=== PATIENT | male | born 1980 | race American Indian/Alaskan Native ===

== ENCOUNTER 2018-09-27 15:28 | Emergency (ER) | payer MEDICAID ==
--- NOTE | 2018-09-27 16:05 | Event Note ---
ED Screening Note ED Screening Note: Pt presents N/V/D that began a week ago states he has left sided abdominal discomfort +dysuria started acyclovir 9 days ago, began having the sx two days later, for HSV 1 and 2 PMHx HIV, rectal CA-chemo/XRT last tx september 23 night sweats bright red blood in the stool 3 times this week This initial assessment/diagnostic orders/clinical plan/treatment(s) is/are subject to change based on patients health status, clinical progression and re- assessment by fellow clinical providers in the ED. Further treatment and workup at subsequent clinical providers discretion. Patient/guardian urged not to elope from the ED as their condition may be serious if not clinically assessed and managed. Initial orders include: labs, UA
[2018-09-27 16:42] LABS: Hematocrit 45.1 % (35.5-45.6); Hemoglobin 15.6 gm/dl (11.8-15.2); Lymphocytes # (Auto) 1.4 K/mm3 (1.2-5.4); Lymphocytes % (Auto) 31.5 % (13.4-35.0); Mean Corpuscular HGB Conc 35 % (32-34); Mean Corpuscular Volume 97 fl (84-94); Monocytes # (Auto) 0.4 K/mm3 (0.0-0.8); Monocytes % (Auto) 8.5 % (0.0-7.3); Platelet Count 228 K/mm3 (140-440); Red Blood Count 4.67 M/mm3 (3.65-5.03)
[2018-09-27 16:56] LABS: Bacteria,Urine 1+ /HPF (Negative); Bilirubin,Urine NEG (Negative); Blood,Urine NEG (Negative); Color,Urine Yellow (Yellow); Mucus,Urine 3+ /HPF
[2018-09-27 17:04] LABS: Alanine Aminotransferase 30 units/L (7-56); Albumin 4.3 g/dL (3.9-5); BUN/Creatinine Ratio 15; Blood Urea Nitrogen 15 mg/dL (9-20); Calcium 8.9 mg/dL (8.4-10.2); Hemolysis Index 35
[2018-09-27] MEDS ORDERED: DILAUDID IV ONE (20:17)
[2018-09-27] MEDS ORDERED: ZOFRAN IV ONE (20:17)
[2018-09-27] MEDS ORDERED: NACL 0.9% 1000 ML 1,000 ML IV ONE (20:17)
--- NOTE | 2018-09-27 20:19 | Emergency Department Report ---
ED Abdominal Pain HPI - General Chief Complaint: Abdominal Pain Stated Complaint: ABD PAIN/NAUSEA/VOMITING Time Seen by Provider: 09/27/18 20:10 Source: patient Mode of arrival: Ambulatory Limitations: No Limitations - History of Present Illness Initial Comments: Patient is a 38-year-old male that presents emergency room with complaints of left upper quadrant pain and nausea vomiting 9 days. Patient states his pain is intermittent. Patient states his pain and nausea are worse when he takes acyclovir. Patient states his symptoms started 9 days ago when she started taking acyclovir that his infectious disease doctor gave him. Patient denies blood in vomitus. Patient states she is having normal bowel movements. Patient states the pain is 10 out of 10. Patient states the pain is worse with movement and vomiting and acyclovir. Patient states the pain is better with rest. MD Complaint: abdominal pain -: Sudden Location: LUQ Radiation: none Migration to: no migration Severity: severe Severity scale (0 -10): 10 Quality: stabbing Consistency: constant Improves With: rest Worsens With: vomiting, medication, movement Context: other (recent medication change) Associated Symptoms: nausea, vomiting. denies: diarrhea, fever, chills, constipation, dysuria, hematemesis, hematochezia, melena, hematuria, anorexia, syncope - Related Data Home Medications Medication Instructions Recorded Confirmed Last Taken Gabapentin [Neurontin] 600 mg PO Q8H 03/05/16 03/05/16 03/04/16 20:00 Previous Rx's Medication Instructions Recorded Last Taken Type Acetaminophen/Codeine [Tylenol 1 tab PO Q6H PRN #10 tab 09/27/18 Unknown Rx /Codeine # 3 tab] Esomeprazole Magnesium [NexIUM] 40 mg PO QDAY #20 capsule. 09/27/18 Unknown Rx Ondansetron [Zofran Odt] 4 mg PO Q8HR PRN #14 tab.rapdis 09/27/18 Unknown Rx Allergies Allergy/AdvReac Type Severity Reaction Status Date / Time Penicillins Allergy Rash Verified 03/05/16 09:50 erythromycin base AdvReac Vomiting Verified 03/05/16 09:50 ketorolac tromethamine AdvReac Vomiting Verified 03/05/16 09:50 [From Toradol] morphine AdvReac Itching Verified 03/05/16 09:50 sulfamethoxazole AdvReac Rash Verified 03/05/16 09:50 [From Bactrim] trimethoprim [From Bactrim] AdvReac Rash Verified 03/05/16 09:50 ED Review of Systems ROS: Stated complaint: ABD PAIN/NAUSEA/VOMITING Other details as noted in HPI Constitutional: denies: chills, fever Eyes: denies: eye pain, eye discharge, vision change ENT: denies: ear pain, throat pain Respiratory: denies: cough, shortness of breath, wheezing Cardiovascular: denies: chest pain, palpitations Endocrine: no symptoms reported Gastrointestinal: abdominal pain, nausea, vomiting. denies: diarrhea Genitourinary: denies: urgency, dysuria Musculoskeletal: denies: back pain, joint swelling, arthralgia Skin: denies: rash, lesions Neurological: denies: headache, weakness, paresthesias Psychiatric: denies: anxiety, depression Hematological/Lymphatic: denies: easy bleeding, easy bruising ED Past Medical Hx - Past Medical History Previous Medical History?: Yes Hx of Cancer: Yes (rectal) Hx Asthma: Yes Hx HIV: Yes Additional medical history: NEUROPATHY, herpes 1 & 2 - Surgical History Past Surgical History?: Yes Hx Cholecystectomy: Yes - Family History Family history: no significant - Social History Smoking Status: Current Every Day Smoker Substance Use Type: Alcohol, Marijuana - Medications Home Medications: Home Medications Medication Instructions Recorded Confirmed Last Taken Type Gabapentin [Neurontin] 600 mg PO Q8H 03/05/16 03/05/16 03/04/16 20:00 History Acetaminophen/Codeine [Tylenol 1 tab PO Q6H PRN #10 tab 09/27/18 Unknown Rx /Codeine # 3 tab] Esomeprazole Magnesium [NexIUM] 40 mg PO QDAY #20 capsule.dr 09/27/18 Unknown Rx Ondansetron [Zofran Odt] 4 mg PO Q8HR PRN #14 tab.rapdis 09/27/18 Unknown Rx ED Physical Exam - General Limitations: No Limitations General appearance: alert, in no apparent distress - Head Head exam: Present: atraumatic, normocephalic - Eye Eye exam: Present: normal appearance - ENT ENT exam: Present: mucous membranes moist - Neck Neck exam: Present: normal inspection - Respiratory Respiratory exam: Present: normal lung sounds bilaterally. Absent: respiratory distress - Cardiovascular Cardiovascular Exam: Present: regular rate, normal rhythm. Absent: systolic murmur, diastolic murmur, rubs, gallop - GI/Abdominal GI/Abdominal exam: Present: soft, tenderness (left upper quadrant and epigastric tenderness), normal bowel sounds - Rectal Rectal exam: Present: deferred - Extremities Exam Extremities exam: Present: normal inspection - Back Exam Back exam: Present: normal inspection - Neurological Exam Neurological exam: Present: alert, oriented X3 - Psychiatric Psychiatric exam: Present: normal affect, normal mood - Skin Skin exam: Present: warm, dry, intact, normal color. Absent: rash ED Course Vital Signs 09/27/18 15:49 Temperature 98.6 F Pulse Rate 83 Respiratory 20 Rate Blood Pressure 127/72 O2 Sat by Pulse 96 Oximetry - Reevaluation(s) Reevaluation #1: Patient states he is feeling better. Patient denies nausea at this time. Patient denies pain. Discussed all results with patient. Patient is stable for discharge. Patient will be discharged home.. Patient agrees to plan of care.. Patient given discharge instructions. Patient voiced understanding of discharge instructions. 09/27/18 22:28 ED Medical Decision Making - Lab Data Result diagrams: 09/27/18 16:16 09/27/18 16:16 - Radiology Data Radiology results: report reviewed PROCEDURE: CT ABDOMEN PELVIS W CON TECHNIQUE: Computerized axial tomography of the abdomen and pelvis was performed after the administration of IV iodinated nonionic contrast. CT DOSE LENGTH PRODUCT: 2022.2 mGycm HISTORY: Abdominal Pain COMPARISONS: None . FINDINGS: Liver, spleen, pancreas and adrenal glands are within normal limits. Bilateral kidneys demonstrate uniform enhancement without hydronephrosis. Aorta is of normal caliber. There is no free fluid or free air. Gallbladder is nonvisualized consistent with cholecystectomy. Small bowel loops are within normal limits. There is moderate degree residual stool. Appendix is normal. Vertebral height is normal. IMPRESSION: No acute intra-abdominal or pelvic pathology. - Medical Decision Making Patient is a 38-year-old male presents to emergency room with complaints of abdominal pain and nausea and vomiting after starting acyclovir. Patient instructed to stop acyclovir and return to his infectious disease doctor for a different medication. Patient given pain medication and fluids and Zofran. Patient responded well to therapy. Patient not have any pain or nausea at discharge. Patient's labs unremarkable. Patient's CT negative. - Differential Diagnosis med reaction. Side effect. Nausea vomiting. Abdominal pain. Gastritis. Critical care attestation.: If time is entered above; I have spent that time in minutes in the direct care of this critically ill patient, excluding procedure time. ED Disposition Clinical Impression: Abdominal pain Qualifiers: Abdominal location: upper abdomen, unspecified Qualified Code(s): R10.10 - Upper abdominal pain, unspecified Nausea & vomiting Qualifiers: Vomiting type: unspecified Vomiting Intractability: non-intractable Qualified Code(s): R11.2 - Nausea with vomiting, unspecified Gastritis Qualifiers: Gastritis type: unspecified gastritis Chronicity: acute Gastritis bleeding: without bleeding Qualified Code(s): K29.00 - Acute gastritis without bleeding Medication reaction Qualifiers: Encounter type: initial encounter Qualified Code(s): T50.905A - Adverse effect of unspecified drugs, medicaments and biological substances, initial encounter Disposition: TO HOME OR SELFCARE Is pt being admited?: No Does the pt Need Aspirin: No Condition: Stable Instructions: Acute Nausea and Vomiting (ED), Abdominal Pain (ED), Gastritis (ED) Additional Instructions: Patient to follow-up with primary care in 2-3 days. Patient to take Tylenol or ibuprofen when necessary for pain. Patient to return to ER if condition worsens. Patient to take meds as directed. Patient to increase water. Patient to rest. Patient to continue all meds. Patient to follow-up with infectious disease in 2-3 days. Patient to stop acyclovir Prescriptions: Esomeprazole Magnesium [NexIUM] 40 mg PO QDAY #20 capsule. Acetaminophen/Codeine [Tylenol /Codeine # 3 tab] 1 tab PO Q6H PRN #10 tab PRN Reason: Pain Ondansetron [Zofran Odt] 4 mg PO Q8HR PRN #14 tab.rapdis PRN Reason: Nausea And Vomiting Referrals: PRIMARY CARE,MD [Primary Care Provider] - 2-3 Days Time of Disposition: 22:34
--- NOTE | 2018-09-27 21:51 | Cat Scan Report ---
PROCEDURE: CT ABDOMEN PELVIS W CON TECHNIQUE: Computerized axial tomography of the abdomen and pelvis was performed after the administr ation of IV iodinated nonionic contrast. CT DOSE LENGTH PRODUCT: 2022.2 mGycm HISTORY: Abdominal Pain COMPARISONS: None . FINDINGS: Liver, spleen, pancreas and adrenal glands are within normal limits. Bilateral kidneys demonstrate un iform enhancement without hydronephrosis. Aorta is of normal caliber. There is no free fluid or free air. Gallbladder is nonvisualized consistent with cholecystectomy. Small bowel loops are within андрей l limits. There is moderate degree residual stool. Appendix is normal. Vertebral height is normal. IMPRESSION: No acute intra-abdominal or pelvic pathology. This document is electronically signed by Chong Bowen MD., September 27 2018 09:49:33 PM ET
[2018-09-27 23:17] VITALS: BP 127/89
== END 2018-09-27 23:14 | disposition home or self-care (01) ==
LOC: ED 15:28
DX: T50.905A Adverse effect of unspecified drugs, medicaments and biological substances, initial encounter (principal); K29.00 Acute gastritis without bleeding; J45.909 Unspecified asthma, uncomplicated; Z85.048 Personal history of other malignant neoplasm of rectum, rectosigmoid junction, and anus; G62.9 Polyneuropathy, unspecified; F17.200 Nicotine dependence, unspecified, uncomplicated; F12.10 Cannabis abuse, uncomplicated; Z90.49 Acquired absence of other specified parts of digestive tract; Z79.899 Other long term (current) drug therapy; Z88.1 Allergy status to other antibiotic agents; Z88.0 Allergy status to penicillin; Z88.6 Allergy status to analgesic agent; Y92.89 Other specified places as the place of occurrence of the external cause
CPT/HCPCS: 36415; 74177; 80053; 81001; 83690; 85025; 96361; 96374; 96375; 99284; J1170; J2405; J7030; Q9967

== ENCOUNTER 2018-10-15 13:04 | Emergency (ER) | payer MEDICAID ==
--- NOTE | 2018-10-15 13:14 | Event Note ---
ED Screening Note ED Screening Note: pt presents for N/V/D that began 3 days ago generalized abd discomfort has had before states he had "crypto" was on doxycycline September 30-october 07, for a possible reinfection of syphilis PMHx HIV, has not taken antivirals in three days DR. Chiu,infectious disease, last saw on September 29 multiple allergies This initial assessment/diagnostic orders/clinical plan/treatment(s) is/are subject to change based on patients health status, clinical progression and re- assessment by fellow clinical providers in the ED. Further treatment and workup at subsequent clinical providers discretion. Patient/guardian urged not to elope from the ED as their condition may be serious if not clinically assessed and managed. Initial orders include: labs, UA
[2018-10-15] MEDS ORDERED: NACL 0.9% 1000 ML 1,000 ML IV ONE (13:34)
[2018-10-15] MEDS ORDERED: ZOFRAN IV ONE (13:34)
--- NOTE | 2018-10-15 13:37 | Emergency Department Report ---
HPI - General Chief Complaint: Abdominal Pain Time Seen by Provider: 10/15/18 13:11 - HPI HPI: 38-year-old male presents to the emergency department with a three-day history of nausea, vomiting, diarrhea and abdominal pain, worse in the upper quadrant. The patient says that his vomiting has been so bad that he has been unable to take his HIV medications for any of his pain medications. He does have a history of HIV, as well as history of rectal cancer for which he gets chemotherapy and radiation done. He also has a history of asthma. No recent travel. He says that his dog is currently sick at home with some similar symptoms. His primary care physician is Dr. Batista, oncologist is Dr. Quezada, radiation oncologist is Dr. Lopez and infectious disease is a Dr. Tepmle. He says that he has not urinated in the past 24 hours. ED Past Medical Hx - Past Medical History Previous Medical History?: Yes Hx Asthma: Yes Hx HIV: Yes Additional medical history: NEUROPATHY, herpes 1 & 2, syphilis - Surgical History Past Surgical History?: Yes Hx Cholecystectomy: Yes - Social History Smoking Status: Current Every Day Smoker - Medications Home Medications: Home Medications Medication Instructions Recorded Confirmed Last Taken Type Gabapentin [Neurontin] 600 mg PO Q8H 03/05/16 03/05/16 03/04/16 20:00 History Acetaminophen/Codeine [Tylenol 1 tab PO Q6H PRN #10 tab 09/27/18 Unknown Rx /Codeine # 3 tab] Esomeprazole Magnesium [NexIUM] 40 mg PO QDAY #20 capsule. 09/27/18 Unknown Rx HYDROcodone/APAP 5-325 [Effort 1 each PO Q6HR PRN #8 tablet 10/15/18 Unknown Rx 5/325] Nitrofurantoin [facility]/M-Cryst 100 mg PO Q12HR #14 capsule 10/15/18 Unknown Rx [Macrobid CAP] Ondansetron [Zofran ODT TAB] 4 mg PO Q8HR PRN #14 tab.rapdis 10/15/18 Unknown Rx ED Review of Systems ROS: Stated complaint: V/NAUSEA Other details as noted in HPI Comment: All other systems reviewed and negative Constitutional: denies: chills, fever Eyes: denies: eye pain, vision change ENT: denies: ear pain, throat pain Respiratory: denies: cough, shortness of breath Cardiovascular: denies: chest pain, palpitations Gastrointestinal: abdominal pain, nausea, vomiting, diarrhea Genitourinary: denies: hematuria, discharge Musculoskeletal: denies: back pain, arthralgia Skin: denies: rash, lesions Neurological: denies: headache, weakness Physical Exam - Physical Exam Vital Signs: Vital Signs 10/15/18 13:12 Temperature 98.9 F Pulse Rate 100 H Respiratory 16 Rate Blood Pressure 123/94 [Right] O2 Sat by Pulse 100 Oximetry Physical Exam: GENERAL: The patient is well-developed well-nourished. HENT: Normocephalic. Atraumatic. Patient has moist mucous membranes. EYES: Extraocular motions are intact. Pupils equal reactive to light bilaterally. NECK: Supple. Trachea is midline. CHEST/LUNGS: Clear to auscultation. There is no respiratory distress noted. HEART/CARDIOVASCULAR: Regular. There is no tachycardia. There is no murmur. ABDOMEN: Abdomen is soft. There is generalized tenderness to palpation of the abdomen. No guarding. Patient has normal bowel sounds. There is no abdominal distention. SKIN: Skin is warm and dry. NEURO: The patient is awake, alert, and oriented. The patient is cooperative. The patient has no focal neurologic deficits. The patient has normal speech. MUSCULOSKELETAL: There is no tenderness or deformity. There is no evidence of acute injury. ED Course Vital Signs 10/15/18 13:12 Temperature 98.9 F Pulse Rate 100 H Respiratory 16 Rate Blood Pressure 123/94 [Right] O2 Sat by Pulse 100 Oximetry ED Medical Decision Making - Lab Data Result diagrams: 10/15/18 13:44 10/15/18 13:44 - Radiology Data Radiology results: report reviewed, image reviewed interpreted by me: abdominal x-ray shows nonspecific nonobstructive bowel gas. CT ABDOMEN AND PELVIS WITH CONTRAST HISTORY: Left upper quadrant abdominal pain with nausea and vomiting for 4 days. History of rectal cancer. COMPARISON: CT of the abdomen and pelvis with contrast from 09/27/2018. TECHNIQUE: Axial, coronal and sagittal CT imaging of the abdomen and pelvis was performed after injection of 100 cc Omnipaque [address] scans at this location are performed using CT dose reduction for ALARA by means of automated exposure control. FINDINGS: LOWER CHEST: No significant abnormality. LIVER: No significant abnormality. BILIARY: Prior cholecystectomy with expected prominence of the bile ducts. No significant abnormality. PANCREAS: No significant abnormality. SPLEEN: No significant abnormality. ADRENALS: No significant abnormality. KIDNEYS AND URETERS: No significant abnormality. GI TRACT: No significant abnormality of the stomach, small bowel or colon. Unremarkable appendix. PERITONEUM: No free fluid. No free air. No fluid collection. LYMPH NODES: No significant adenopathy. AORTA and ARTERIES: No significant abnormality. IVC and VEINS: No significant abnormality. URINARY BLADDER: No significant abnormality. REPRODUCTIVE ORGANS: No significant abnormality. ADDITIONAL FINDINGS: None. SKELETAL SYSTEM: No significant abnormality. IMPRESSION: 1. No acute abnormality. 2. No evidence of recurrent/metastatic disease in the abdomen or pelvis. - Medical Decision Making This patient presents with a three-day history of some nausea, vomiting, diarrhea and upper abdominal discomfort. He has a history of HIV and rectal cancer. On examination he has some generalized tenderness to palpation but the abdomen is soft and nondistended. Patient's labs have been mostly unremarkable except for a possible small/mild urinary tract infection. Abdominal x-ray shows nonspecific nonobstructive bowel gas. CT of the abdomen and pelvis with IV contrast does not show any acute abdominal or pelvic pathology or any signs of any metastatic disease. The patient was given some IV fluid resuscitation, pain medication and nausea meds. He was able to pass an oral challenge. His vital signs are stable throughout his ED course included "febrile. The patient has good follow-up with primary care, oncology, radiation oncology and infectious disease. He is been discharged home with some pain medication, nausea medication and antibiotics for the urinary tract infection. He will return to [facility] emergency Department with any worsening of his symptoms or any acute distress. - Differential Diagnosis gastritis, colitis, diverticulitis, food poisoning, malignancy Critical Care Time: No Critical care attestation.: If time is entered above; I have spent that time in minutes in the direct care of this critically ill patient, excluding procedure time. ED Disposition Clinical Impression: Abdominal pain Qualifiers: Abdominal location: upper abdomen, unspecified Qualified Code(s): R10.10 - Upper abdominal pain, unspecified Nausea & vomiting Qualifiers: Vomiting type: unspecified Vomiting Intractability: non-intractable Qualified Code(s): R11.2 - Nausea with vomiting, unspecified UTI (urinary tract infection) Qualifiers: Urinary tract infection type: acute cystitis Hematuria presence: without hematuria Qualified Code(s): N30.00 - Acute cystitis without hematuria Disposition: TO HOME OR SELFCARE Is pt being admited?: No Condition: Stable Instructions: Urinary Tract Infection in Men (ED), Acute Nausea and Vomiting (ED), Abdominal Pain (ED) Additional Instructions: Please follow-up with your primary care physician in the next few days. Return to the emergency Department with any worsening of your symptoms or any acute distress. Increased your oral re-hydration. Take the antibiotics as prescribed. You have been prescribed a medication that is sedating and therefore should not be taken prior to driving, working, and responsible for children and in no way should be mixed with alcohol of any quantity. Prescriptions: Nitrofurantoin [facility]/M-Cryst [Macrobid CAP] 100 mg PO Q12HR #14 capsule HYDROcodone/APAP 5-325 [Effort 5/325] 1 each PO Q6HR PRN #8 tablet PRN Reason: Pain Ondansetron [Zofran ODT TAB] 4 mg PO Q8HR PRN #14 tab.rapdis PRN Reason: Nausea And Vomiting Referrals: CONOR BATISTA MD [Other] - 2-3 Days Time of Disposition: 17:26
[2018-10-15 13:56] LABS: Basophils % (Auto) 0.8 % (0.0-1.8); Eosinophils % (Auto) 1.1 % (0.0-4.3); Hematocrit 52.1 % (35.5-45.6); Hemoglobin 18.1 gm/dl (11.8-15.2); Lymphocytes # (Auto) 1.1 K/mm3 (1.2-5.4); Mean Corpuscular HGB Conc 35 % (32-34); Mean Corpuscular Volume 96 fl (84-94); Monocytes # (Auto) 0.4 K/mm3 (0.0-0.8); Monocytes % (Auto) 14.2 % (0.0-7.3); Platelet Count 204 K/mm3 (140-440); Red Blood Count 5.41 M/mm3 (3.65-5.03)
[2018-10-15] MEDS ORDERED: DILAUDID IV ONE ×2 (14:06→15:08)
[2018-10-15 14:20] LABS: Alanine Aminotransferase 33 units/L (7-56); Albumin 4.6 g/dL (3.9-5); BUN/Creatinine Ratio 13; Blood Urea Nitrogen 15 mg/dL (9-20); Calcium 9.8 mg/dL (8.4-10.2); Hemolysis Index 5
--- NOTE | 2018-10-15 15:15 | XRay Report ---
ABDOMEN 2 VIEW(S) INDICATION / CLINICAL INFORMATION: Abdominal pain, nausea, vomiting and diarrhea for 3 days.. COMPARISON: None available. FINDINGS: TUBES / LINES: None. BOWEL GAS PATTERN: No significant abnormality. FREE AIR / EXTRALUMINAL GAS: None seen. ADDITIONAL FINDINGS: Surgical clips in the right upper quadrant suggest previous cholecystectomy. IMPRESSION: 1. No significant abnormality. Signer Name: Saurabh Fishman Jr, MD Signed: 10/15/2018 2:43 PM Workstation Name: [id number]
[2018-10-15 15:38] LABS: Bilirubin,Urine NEG (Negative); Blood,Urine NEG (Negative); Color,Urine Yellow (Yellow); Mucus,Urine 3+ /HPF; Urobilinogen,Urine < 2.0 mg/dL (<2.0)
--- NOTE | 2018-10-15 16:52 | Cat Scan Report ---
CT ABDOMEN AND PELVIS WITH CONTRAST HISTORY: Left upper quadrant abdominal pain with nausea and vomiting for 4 days. History of rectal ca ncer. COMPARISON: CT of the abdomen and pelvis with contrast from 09/27/2018. TECHNIQUE: Axial, coronal and sagittal CT imaging of the abdomen and pelvis was performed after inje ction of 100 cc Omnipaque [address] scans at this location are performed using CT dose re duction for ALARA by means of automated exposure control. FINDINGS: LOWER CHEST: No significant abnormality. LIVER: No significant abnormality. BILIARY: Prior cholecystectomy with expected prominence of the bile ducts. No significant abnormality . PANCREAS: No significant abnormality. SPLEEN: No significant abnormality. ADRENALS: No significant abnormality. KIDNEYS AND URETERS: No significant abnormality. GI TRACT: No significant abnormality of the stomach, small bowel or colon. Unremarkable appendix. PERITONEUM: No free fluid. No free air. No fluid collection. LYMPH NODES: No significant adenopathy. AORTA and ARTERIES: No significant abnormality. IVC and VEINS: No significant abnormality. URINARY BLADDER: No significant abnormality. REPRODUCTIVE ORGANS: No significant abnormality. ADDITIONAL FINDINGS: None. SKELETAL SYSTEM: No significant abnormality. IMPRESSION: 1. No acute abnormality. 2. No evidence of recurrent/metastatic disease in the abdomen or pelvis. Signer Name: Haim Lafleur MD Signed: 10/15/2018 4:48 PM Workstation Name: [id number]
[2018-10-15 17:16] VITALS: BP 104/60
[2018-10-15] MEDS ORDERED: MORPHINE IV ONE (17:51)
== END 2018-10-15 18:28 | disposition home or self-care (01) ==
LOC: ED 13:04
DX: N39.0 Urinary tract infection, site not specified (principal); R11.2 Nausea with vomiting, unspecified; J45.909 Unspecified asthma, uncomplicated; F17.200 Nicotine dependence, unspecified, uncomplicated; Z90.49 Acquired absence of other specified parts of digestive tract; Z79.899 Other long term (current) drug therapy
CPT/HCPCS: 36415; 74019; 74177; 80053; 81001; 83690; 85025; 87086; 96361; 96374; 96375; 96376; 99284; J1170; J2270; J2405; J7030; Q9967

== ENCOUNTER 2018-10-18 06:16 | Emergency (ER) | payer MEDICAID ==
[2018-10-18 07:17] LABS: Basophils % (Auto) 0.8 % (0.0-1.8); Eosinophils % (Auto) 1.1 % (0.0-4.3); Hematocrit 49.1 % (35.5-45.6); Hemoglobin 17.1 gm/dl (11.8-15.2); Lymphocytes # (Auto) 1.1 K/mm3 (1.2-5.4); Lymphocytes % (Auto) 30.9 % (13.4-35.0); Mean Corpuscular HGB Conc 35 % (32-34); Mean Corpuscular Volume 97 fl (84-94); Monocytes # (Auto) 0.4 K/mm3 (0.0-0.8); Monocytes % (Auto) 11.5 % (0.0-7.3); Platelet Count 223 K/mm3 (140-440); Red Blood Count 5.09 M/mm3 (3.65-5.03); Red Cell Distribution Width 15.3 % (13.2-15.2)
[2018-10-18] MEDS ORDERED: NACL 0.9% 1000 ML 2,000 ML IV ONE (07:32)
[2018-10-18 07:34] LABS: Alanine Aminotransferase 35 units/L (7-56); Albumin 4.4 g/dL (3.9-5); BUN/Creatinine Ratio 13; Blood Urea Nitrogen 15 mg/dL (9-20); Calcium 9.8 mg/dL (8.4-10.2); Hemolysis Index 25
[2018-10-18] MEDS: HALDOL IM ONE ×2 (07:56→08:03)
[2018-10-18 08:30] VITALS: BP 104/69
--- NOTE | 2018-10-18 09:23 | Emergency Department Report ---
ED Abdominal Pain HPI - General Chief Complaint: GI Bleed Stated Complaint: N/V/D/BLOOD IN STOOL/H/A Time Seen by Provider: 10/18/18 06:50 Source: patient Mode of arrival: Ambulatory Limitations: No Limitations - History of Present Illness Initial Comments: Reports hx of similar. Reports has follow up appointment with his ID doctor. Hx rectal cancer. Complaint: abdominal pain -: Gradual, days(s) Location: diffuse Radiation: none Migration to: no migration Severity: mild Severity scale (0 -10): 2 Quality: aching Consistency: intermittent Improves With: nothing Worsens With: nothing Context: other (Reports hx of HIV compliant with retrovirals. Reports last CD4 count approximately 240) Associated Symptoms: nausea, vomiting, diarrhea, chills. denies: fever, constipation, dysuria, hematemesis, hematochezia, melena, hematuria, anorexia, syncope - Related Data Home Medications Medication Instructions Recorded Confirmed Last Taken Gabapentin [Neurontin] 600 mg PO Q8H 03/05/16 03/05/16 03/04/16 20:00 Previous Rx's Medication Instructions Recorded Last Taken Type Acetaminophen/Codeine [Tylenol 1 tab PO Q6H PRN #10 tab 09/27/18 Unknown Rx /Codeine # 3 tab] Esomeprazole Magnesium [NexIUM] 40 mg PO QDAY #20 capsule. 09/27/18 Unknown Rx HYDROcodone/APAP 5-325 [[place] 1 each PO Q6HR PRN #8 tablet 10/15/18 Unknown Rx 5/325] Nitrofurantoin [place]/M-Cryst 100 mg PO Q12HR #14 capsule 10/15/18 Unknown Rx [Macrobid CAP] Ondansetron [Zofran ODT TAB] 4 mg PO Q8HR PRN #14 tab.rapdis 10/15/18 Unknown Rx Allergies Allergy/AdvReac Type Severity Reaction Status Date / Time ciprofloxacin [From Cipro] Allergy Unknown Verified 10/15/18 13:12 Penicillins Allergy Rash Verified 10/15/18 13:05 erythromycin base AdvReac Vomiting Verified 10/15/18 13:05 ketorolac tromethamine AdvReac Vomiting Verified 10/15/18 13:05 [From Toradol] morphine AdvReac Itching Verified 10/15/18 13:05 sulfamethoxazole AdvReac Rash Verified 10/15/18 13:05 [From Bactrim] trimethoprim [From Bactrim] AdvReac Rash Verified 10/15/18 13:05 ED Review of Systems ROS: Stated complaint: N/V/D/BLOOD IN STOOL/H/A Other details as noted in HPI Other: GENERAL: No weight change, fatigue, weakness, fever, chills, or night sweats SKIN: No changes in skin or hair, no itching, no rashes, no jaundice HEAD: No trauma, headache, or visual changes EYES: No blurriness, tearing, itching, acute visual loss, conjunctival d iscoloration, or scleral icterus EARS: No hearing loss, tinnitus, vertigo, or earache NOSE: No rhinorrhea, stuffiness, sneezing, itching, or epistaxis MOUTH: No bleeding gums, hoarseness, sore throat, or swelling CARDIAC: No new murmur, chest pain, palpitations, dyspnea on exertion, orthopnea, PND, or edema RESPIRATORY: No shortness of breath, wheeze, cough, sputum production, hemoptysis, pneumonia, asthma, bronchitis, or emphysema GI: Abdominal pain, nausea, vomiting, diarrhea. URINARY: No frequency, urgency, polyuria, dysuria, hematuria, or incontinence GENITAL: Male: No penile discharge, testicular pain, testicular masses, or hernia Female: No change in menstrual regularity, no frequency or dysmenorrhea MUSCULOSKELETAL: No muscle weakness, joint stiffness, decrease in range of motion, redness, swelling NEUROLOGIC: No loss of sensation, numbness, tingling, tremors, weakness, paralys is, seizures HEMATOLOGIC: No anemia, easy bruising, bleeding, petechiae, or purpura ENDOCRINE: No hot or cold intolerance, sweating, polyuria, polydipsia or, polyphagia no thyroid problems PSYCHIATRIC: No change in mood, no anxiety, no depression ED Past Medical Hx - Past Medical History Previous Medical History?: Yes Hx Asthma: Yes Hx HIV: Yes Additional medical history: NEUROPATHY, herpes 1 & 2, syphilis - Surgical History Past Surgical History?: Yes Hx Cholecystectomy: Yes - Social History Smoking Status: Current Every Day Smoker Substance Use Type: None - Medications Home Medications: Home Medications Medication Instructions Recorded Confirmed Last Taken Type Gabapentin [Neurontin] 600 mg PO Q8H 03/05/16 03/05/16 03/04/16 20:00 History Acetaminophen/Codeine [Tylenol 1 tab PO Q6H PRN #10 tab 09/27/18 Unknown Rx /Codeine # 3 tab] Esomeprazole Magnesium [NexIUM] 40 mg PO QDAY #20 capsule. 09/27/18 Unknown Rx HYDROcodone/APAP 5-325 [[place] 1 each PO Q6HR PRN #8 tablet 10/15/18 Unknown Rx 5/325] Nitrofurantoin [place]/M-Cryst 100 mg PO Q12HR #14 capsule 10/15/18 Unknown Rx [Macrobid CAP] Ondansetron [Zofran ODT TAB] 4 mg PO Q8HR PRN #14 tab.rapdis 10/15/18 Unknown Rx ED Physical Exam - General Limitations: No Limitations - Other Other exam information: GENERAL: Patient in no acute distress HEAD: Normocephalic, atraumatic EYES: PERRLA, EOM intact, no scleral icterus, no papilledema, no conjunctival hemorrhage, visual andrew and acuity wnl, EARS: No tenderness, discharge, tympanic membrane wnl NOSE: No tenderness, discharge, sinus tenderness MOUTH: No erythema, bleeding, exudate HEART: Regular rate and rhythm, no murmur, S1-S2 are auscultated, pulses are symmetric LUNGS: No wheezing, rales, rhonchi, bilateral breath sounds ABDOMEN: Normal bowel sounds, no tenderness, no rebound, no guarding, no masses, no CVA tenderness MUSCULOSKELETAL: Normal joint range of motion, no redness, no swelling, no tenderness NEUROLOGIC: GCS 15, Alert and Oriented x3, Cranial nerves intact, normal sensa tion, normal strength, normal gait, no cerebellar deficit PSYCHIATRIC: No homicidal or suicidal ideation, no anxiety, no depression, no hallucinations SKIN: Skin is warm and dry, no wounds, no rashes ED Course Vital Signs 10/18/18 10/18/18 10/18/18 06:17 06:19 06:45 Temperature 98.7 F 98.7 F 99 F Pulse Rate 115 H 119 H 110 H Respiratory 18 18 13 Rate Blood Pressure 124/95 124/95 Blood Pressure 125/85 [Left] O2 Sat by Pulse 98 98 98 Oximetry 10/18/18 08:29 Temperature Pulse Rate 74 Respiratory 16 Rate Blood Pressure Blood Pressure 104/69 [Left] O2 Sat by Pulse 96 Oximetry ED Medical Decision Making - Lab Data Result diagrams: 10/18/18 06:43 10/18/18 06:49 Abnormal Lab Results 10/18/18 10/18/18 10/18/18 06:43 06:45 06:49 WBC 3.6 L RBC 5.09 H Hgb 17.1 H Hct 49.1 H MCV 97 H MCH 34 H MCHC 35 H RDW 15.3 H Plt Count 223 Lymph % (Auto) 30.9 Leslie % (Auto) 11.5 H Eos % (Auto) 1.1 Baso % (Auto) 0.8 Lymph # 1.1 L [place] # 0.4 Eos # 0.0 Baso # 0.0 Seg Neutrophils % 55.7 Seg Neutrophils # 2.0 Sodium 140 Potassium 4.1 Chloride 105.9 Carbon Dioxide 20 L Anion Gap 18 BUN 15 Creatinine 1.2 Estimated GFR > 60 BUN/Creatinine Ratio 13 Glucose 123 H Calcium 9.8 Total Bilirubin 0.80 AST 21 ALT 35 Alkaline Phosphatase 97 Total Protein 8.1 Albumin 4.4 Albumin/Globulin Ratio 1.2 Lipase 24 - Medical Decision Making ER nurse reports patient signed out AMA. Critical care attestation.: If time is entered above; I have spent that time in minutes in the direct care of this critically ill patient, excluding procedure time. ED Disposition Clinical Impression: Abdominal pain Qualifiers: Abdominal location: unspecified location Qualified Code(s): R10.9 - Unspecified abdominal pain Disposition: LEFT AGAINST MED ADVICE Is pt being admited?: No Condition: Stable Referrals: SRI BRICEÑO MD [Primary Care Provider] - 3-5 Days Forms: Accompanied Note
== END 2018-10-18 09:31 | disposition left against medical advice (07) ==
LOC: ED 06:16
DX: R10.84 Generalized abdominal pain (principal); R11.2 Nausea with vomiting, unspecified; R19.7 Diarrhea, unspecified; J45.909 Unspecified asthma, uncomplicated; G62.9 Polyneuropathy, unspecified; F17.200 Nicotine dependence, unspecified, uncomplicated; Z90.49 Acquired absence of other specified parts of digestive tract; Z79.899 Other long term (current) drug therapy; Z88.6 Allergy status to analgesic agent; Z88.1 Allergy status to other antibiotic agents; Z88.0 Allergy status to penicillin; Z88.2 Allergy status to sulfonamides; Z88.8 Allergy status to other drugs, medicaments and biological substances
CPT/HCPCS: 36415; 80053; 83690; 85025; 99283; J1630; J7030

== ENCOUNTER 2018-11-22 12:24 | Emergency (ER) | payer MEDICAID ==
[2018-11-22 13:26] VITALS: BP 130/89
[2018-11-22] MEDS ORDERED: PERCOCET 5/325 PO ONE (14:10)
[2018-11-22] MEDS ORDERED: BENADRYL PO ONE (14:10)
--- NOTE | 2018-11-22 14:36 | Emergency Department Report ---
ED ENT HPI - General Chief complaint: Dental/Oral Stated complaint: MOUTH PAIN Time Seen by Provider: 11/22/18 14:07 Source: patient Mode of arrival: Ambulatory Limitations: No Limitations - History of Present Illness Initial comments: Mr. Funk is a 38 yo male who presents with dental abscess and right facial cellulitis Severe pain and +purulent drainage. MD complaint: tooth pain -: Gradual, week(s) (1) Location: tooth # (7) Severity: severe Severity scale (0 -10): 10 Quality: aching Consistency: constant Worsens with: movement Context- Dental: history of dental caries Associated Symptoms: gum swelling - Related Data Home Medications Medication Instructions Recorded Confirmed Last Taken Gabapentin [Neurontin] 600 mg PO Q8H 03/05/16 03/05/16 03/04/16 20:00 Previous Rx's Medication Instructions Recorded Last Taken Type Acetaminophen/Codeine [Tylenol 1 tab PO Q6H PRN #10 tab 09/27/18 Unknown Rx /Codeine # 3 tab] Esomeprazole Magnesium [NexIUM] 40 mg PO QDAY #20 capsule. 09/27/18 Unknown Rx HYDROcodone/APAP 5-325 [[place] 1 each PO Q6HR PRN #8 tablet 10/15/18 Unknown Rx 5/325] Nitrofurantoin [place]/M-Cryst 100 mg PO Q12HR #14 capsule 10/15/18 Unknown Rx [Macrobid CAP] Ondansetron [Zofran ODT TAB] 4 mg PO Q8HR PRN #14 tab.rapdis 10/15/18 Unknown Rx Clindamycin [Clindamycin CAP] 300 mg PO TID 10 Days #30 cap 11/22/18 Unknown Rx oxyCODONE /ACETAMINOPHEN [Percocet 1 tab PO Q6HR PRN #15 tablet 11/22/18 Unknown Rx 5/325] Allergies Allergy/AdvReac Type Severity Reaction Status Date / Time ciprofloxacin [From Cipro] Allergy Unknown Verified 10/15/18 13:12 Penicillins Allergy Rash Verified 10/15/18 13:05 erythromycin base AdvReac Vomiting Verified 10/15/18 13:05 ketorolac tromethamine AdvReac Vomiting Verified 10/15/18 13:05 [From Toradol] morphine AdvReac Itching Verified 10/15/18 13:05 sulfamethoxazole AdvReac Rash Verified 10/15/18 13:05 [From Bactrim] trimethoprim [From Bactrim] AdvReac Rash Verified 10/15/18 13:05 ED Dental HPI - General Chief complaint: Dental/Oral Stated complaint: MOUTH PAIN Time Seen by Provider: 11/22/18 14:07 Source: patient Mode of arrival: Ambulatory Limitations: No Limitations - Related Data Home Medications Medication Instructions Recorded Confirmed Last Taken Gabapentin [Neurontin] 600 mg PO Q8H 03/05/16 03/05/16 03/04/16 20:00 Previous Rx's Medication Instructions Recorded Last Taken Type Acetaminophen/Codeine [Tylenol 1 tab PO Q6H PRN #10 tab 09/27/18 Unknown Rx /Codeine # 3 tab] Esomeprazole Magnesium [NexIUM] 40 mg PO QDAY #20 capsule. 09/27/18 Unknown Rx HYDROcodone/APAP 5-325 [[place] 1 each PO Q6HR PRN #8 tablet 10/15/18 Unknown Rx 5/325] Nitrofurantoin [place]/M-Cryst 100 mg PO Q12HR #14 capsule 10/15/18 Unknown Rx [Macrobid CAP] Ondansetron [Zofran ODT TAB] 4 mg PO Q8HR PRN #14 tab.rapdis 10/15/18 Unknown Rx Clindamycin [Clindamycin CAP] 300 mg PO TID 10 Days #30 cap 11/22/18 Unknown Rx oxyCODONE /ACETAMINOPHEN [Percocet 1 tab PO Q6HR PRN #15 tablet 11/22/18 Unknown Rx 5/325] Allergies Allergy/AdvReac Type Severity Reaction Status Date / Time ciprofloxacin [From Cipro] Allergy Unknown Verified 10/15/18 13:12 Penicillins Allergy Rash Verified 10/15/18 13:05 erythromycin base AdvReac Vomiting Verified 10/15/18 13:05 ketorolac tromethamine AdvReac Vomiting Verified 10/15/18 13:05 [From Toradol] morphine AdvReac Itching Verified 10/15/18 13:05 sulfamethoxazole AdvReac Rash Verified 10/15/18 13:05 [From Bactrim] trimethoprim [From Bactrim] AdvReac Rash Verified 10/15/18 13:05 ED Review of Systems ROS: Stated complaint: MOUTH PAIN Other details as noted in HPI Constitutional: denies: fever Respiratory: denies: shortness of breath Cardiovascular: denies: chest pain Gastrointestinal: denies: abdominal pain, nausea, vomiting ED Past Medical Hx - Past Medical History Hx Asthma: Yes Hx HIV: Yes Additional medical history: NEUROPATHY, herpes 1 & 2, syphilis - Surgical History Hx Cholecystectomy: Yes - Social History Smoking Status: Current Every Day Smoker Substance Use Type: None - Medications Home Medications: Home Medications Medication Instructions Recorded Confirmed Last Taken Type Gabapentin [Neurontin] 600 mg PO Q8H 03/05/16 03/05/16 03/04/16 20:00 History Acetaminophen/Codeine [Tylenol 1 tab PO Q6H PRN #10 tab 09/27/18 Unknown Rx /Codeine # 3 tab] Esomeprazole Magnesium [NexIUM] 40 mg PO QDAY #20 capsule. 09/27/18 Unknown Rx HYDROcodone/APAP 5-325 [[place] 1 each PO Q6HR PRN #8 tablet 10/15/18 Unknown Rx 5/325] Nitrofurantoin [place]/M-Cryst 100 mg PO Q12HR #14 capsule 10/15/18 Unknown Rx [Macrobid CAP] Ondansetron [Zofran ODT TAB] 4 mg PO Q8HR PRN #14 tab.rapdis 10/15/18 Unknown Rx Clindamycin [Clindamycin CAP] 300 mg PO TID 10 Days #30 cap 11/22/18 Unknown Rx oxyCODONE /ACETAMINOPHEN [Percocet 1 tab PO Q6HR PRN #15 tablet 11/22/18 Unknown Rx 5/325] ED Physical Exam - General Limitations: No Limitations General appearance: alert, in no apparent distress, other (tearful appears in topher) - Head Head exam: Present: atraumatic, normocephalic, other (mild right facial swelling) - Eye Eye exam: Present: other (dental gum abscess right upper gum with active drainage) - ENT ENT exam: Present: other (diffuse tooth decay with abscess gum active drainage) - Neck Neck exam: Present: normal inspection, full ROM. Absent: tenderness, meningismus - Respiratory Respiratory exam: Absent: respiratory distress - Neurological Exam Neurological exam: Present: alert, oriented X3 - Psychiatric Psychiatric exam: Present: normal affect, normal mood - Skin Skin exam: Present: warm, dry, intact, normal color ED Course Vital Signs 11/22/18 13:25 Temperature 99.2 F Pulse Rate 75 Respiratory 18 Rate Blood Pressure 130/89 O2 Sat by Pulse 100 Oximetry ED Medical Decision Making - Medical Decision Making dental abscess, facial cellulitis: rx clindamycin, percocet Critical care attestation.: If time is entered above; I have spent that time in minutes in the direct care of this critically ill patient, excluding procedure time. ED Disposition Clinical Impression: Dental abscess, Facial cellulitis Disposition: TO HOME OR SELFCARE Is pt being admited?: No Does the pt Need Aspirin: No Condition: Stable Instructions: Dental Abscess (ED) Prescriptions: Clindamycin [Clindamycin CAP] 300 mg PO TID 10 Days #30 cap oxyCODONE /ACETAMINOPHEN [Percocet 5/325] 1 tab PO Q6HR PRN #15 tablet PRN Reason: Pain Referrals: [facility] [Outside] - 3-5 Days
--- NOTE | 2018-11-22 23:00 | Emergency Department Report ---
ED ENT HPI - General Chief complaint: Dental/Oral Stated complaint: MOUTH PAIN Time Seen by Provider: 11/22/18 14:07 Source: patient Mode of arrival: Ambulatory Limitations: No Limitations - Related Data Home Medications Medication Instructions Recorded Confirmed Last Taken Gabapentin [Neurontin] 600 mg PO Q8H 03/05/16 03/05/16 03/04/16 20:00 Previous Rx's Medication Instructions Recorded Last Taken Type Acetaminophen/Codeine [Tylenol 1 tab PO Q6H PRN #10 tab 09/27/18 Unknown Rx /Codeine # 3 tab] Esomeprazole Magnesium [NexIUM] 40 mg PO QDAY #20 capsule. 09/27/18 Unknown Rx HYDROcodone/APAP 5-325 [[place] 1 each PO Q6HR PRN #8 tablet 10/15/18 Unknown Rx 5/325] Nitrofurantoin [place]/M-Cryst 100 mg PO Q12HR #14 capsule 10/15/18 Unknown Rx [Macrobid CAP] Ondansetron [Zofran ODT TAB] 4 mg PO Q8HR PRN #14 tab.rapdis 10/15/18 Unknown Rx Clindamycin [Clindamycin CAP] 300 mg PO TID 10 Days #30 cap 11/22/18 Unknown Rx oxyCODONE /ACETAMINOPHEN [Percocet 1 tab PO Q6HR PRN #15 tablet 11/22/18 Unknown Rx 5/325] Allergies Allergy/AdvReac Type Severity Reaction Status Date / Time ciprofloxacin [From Cipro] Allergy Unknown Verified 10/15/18 13:12 Penicillins Allergy Rash Verified 10/15/18 13:05 erythromycin base AdvReac Vomiting Verified 10/15/18 13:05 ketorolac tromethamine AdvReac Vomiting Verified 10/15/18 13:05 [From Toradol] morphine AdvReac Itching Verified 10/15/18 13:05 sulfamethoxazole AdvReac Rash Verified 10/15/18 13:05 [From Bactrim] trimethoprim [From Bactrim] AdvReac Rash Verified 10/15/18 13:05 ED Dental HPI - General Chief complaint: Dental/Oral Stated complaint: MOUTH PAIN Time Seen by Provider: 11/22/18 14:07 Source: patient Mode of arrival: Ambulatory Limitations: No Limitations - Related Data Home Medications Medication Instructions Recorded Confirmed Last Taken Gabapentin [Neurontin] 600 mg PO Q8H 03/05/16 03/05/16 03/04/16 20:00 Previous Rx's Medication Instructions Recorded Last Taken Type Acetaminophen/Codeine [Tylenol 1 tab PO Q6H PRN #10 tab 09/27/18 Unknown Rx /Codeine # 3 tab] Esomeprazole Magnesium [NexIUM] 40 mg PO QDAY #20 capsule. 09/27/18 Unknown Rx HYDROcodone/APAP 5-325 [[place] 1 each PO Q6HR PRN #8 tablet 10/15/18 Unknown Rx 5/325] Nitrofurantoin [place]/M-Cryst 100 mg PO Q12HR #14 capsule 10/15/18 Unknown Rx [Macrobid CAP] Ondansetron [Zofran ODT TAB] 4 mg PO Q8HR PRN #14 tab.rapdis 10/15/18 Unknown Rx Clindamycin [Clindamycin CAP] 300 mg PO TID 10 Days #30 cap 11/22/18 Unknown Rx oxyCODONE /ACETAMINOPHEN [Percocet 1 tab PO Q6HR PRN #15 tablet 11/22/18 Unknown Rx 5/325] Allergies Allergy/AdvReac Type Severity Reaction Status Date / Time ciprofloxacin [From Cipro] Allergy Unknown Verified 10/15/18 13:12 Penicillins Allergy Rash Verified 10/15/18 13:05 erythromycin base AdvReac Vomiting Verified 10/15/18 13:05 ketorolac tromethamine AdvReac Vomiting Verified 10/15/18 13:05 [From Toradol] morphine AdvReac Itching Verified 10/15/18 13:05 sulfamethoxazole AdvReac Rash Verified 10/15/18 13:05 [From Bactrim] trimethoprim [From Bactrim] AdvReac Rash Verified 10/15/18 13:05 ED Review of Systems ROS: Stated complaint: MOUTH PAIN Other details as noted in HPI ED Past Medical Hx - Past Medical History Hx Asthma: Yes Hx HIV: Yes Additional medical history: NEUROPATHY, herpes 1 & 2, syphilis - Surgical History Hx Cholecystectomy: Yes - Social History Smoking Status: Current Every Day Smoker Substance Use Type: None - Medications Home Medications: Home Medications Medication Instructions Recorded Confirmed Last Taken Type Gabapentin [Neurontin] 600 mg PO Q8H 03/05/16 03/05/16 03/04/16 20:00 History Acetaminophen/Codeine [Tylenol 1 tab PO Q6H PRN #10 tab 09/27/18 Unknown Rx /Codeine # 3 tab] Esomeprazole Magnesium [NexIUM] 40 mg PO QDAY #20 capsule. 09/27/18 Unknown Rx HYDROcodone/APAP 5-325 [[place] 1 each PO Q6HR PRN #8 tablet 10/15/18 Unknown Rx 5/325] Nitrofurantoin [place]/M-Cryst 100 mg PO Q12HR #14 capsule 10/15/18 Unknown Rx [Macrobid CAP] Ondansetron [Zofran ODT TAB] 4 mg PO Q8HR PRN #14 tab.rapdis 10/15/18 Unknown Rx Clindamycin [Clindamycin CAP] 300 mg PO TID 10 Days #30 cap 11/22/18 Unknown Rx oxyCODONE /ACETAMINOPHEN [Percocet 1 tab PO Q6HR PRN #15 tablet 11/22/18 Unknown Rx 5/325] ED Physical Exam - General Limitations: No Limitations ED Course Vital Signs 11/22/18 13:25 Temperature 99.2 F Pulse Rate 75 Respiratory 18 Rate Blood Pressure 130/89 O2 Sat by Pulse 100 Oximetry Critical care attestation.: If time is entered above; I have spent that time in minutes in the direct care of this critically ill patient, excluding procedure time. ED Disposition Condition: Stable
== END 2018-11-22 14:45 | disposition home or self-care (01) ==
LOC: ED 12:24
DX: K04.7 Periapical abscess without sinus (principal); L03.211 Cellulitis of face; J45.909 Unspecified asthma, uncomplicated; F17.200 Nicotine dependence, unspecified, uncomplicated; Z88.1 Allergy status to other antibiotic agents; Z88.0 Allergy status to penicillin; Z79.899 Other long term (current) drug therapy; Z88.5 Allergy status to narcotic agent; Z88.2 Allergy status to sulfonamides; Z21 Asymptomatic human immunodeficiency virus [HIV] infection status; Z90.49 Acquired absence of other specified parts of digestive tract
CPT/HCPCS: 99282

== ENCOUNTER 2019-02-16 00:45 | Emergency (ER) | payer MEDICAID ==
[2019-02-16 00:57] VITALS: BP 138/83
== END 2019-02-16 00:53 | disposition left against medical advice (07) ==
LOC: ED 00:45
DX: M62.838 Other muscle spasm (principal); Z53.21 Procedure and treatment not carried out due to patient leaving prior to being seen by health care provider

== ENCOUNTER 2019-05-06 13:08 | Emergency (ER) | payer MEDICAID ==
[2019-05-06] MEDS ORDERED: SODIUM CHLORIDE 0.9% 1000 ML 1,000 ML IV ONE (14:44)
[2019-05-06] MEDS ORDERED: ONDANSETRON 4 MG/2 ML INJ IV ONE ×2 (14:44→21:58)
[2019-05-06] MEDS ORDERED: ACETAMINOPHEN 325 MG/10.15 ML ORAL LIQD UNIT DOSE PO ONE (14:45)
--- NOTE | 2019-05-06 14:48 | Emergency Department Report ---
Chief Complaint: Abdominal Pain Stated Complaint: FLU SYM/VOMIT - HPI History of Present Illness: 39 y/o male, hiv +m on [place], partially compliant, undetectable viral load, cant recall last cd4, recent admitted to [facility] for pneumonia (feb 2019) p/w n/v/d, llq, luq abd pain fever at home uncomfortable llq, piotr tender exam otherwise unremarkable labs, ua, ct a/p reassess treat symptoms ok for ft or main side reassess after results can get morphine if needed, just needs benadryl for itching Vital Signs 05/06/19 14:37 Temperature 99.7 F H Pulse Rate 100 H Respiratory 18 Rate Blood Pressure 141/88 O2 Sat by Pulse 99 Oximetry - Exam Vital Signs: Vital Signs 05/06/19 14:37 Temperature 99.7 F H Pulse Rate 100 H Respiratory 18 Rate Blood Pressure 141/88 O2 Sat by Pulse 99 Oximetry MSE screening note: Focused history and physical exam performed. Due to findings the following was ordered: ED Disposition for MSE Condition: Stable
[2019-05-06] MEDS ORDERED: diphenhydrAMINE 50 MG/ML VIAL IV ONE (16:52)
[2019-05-06] MEDS ORDERED: MORPHINE 4 MG/1 ML INJ IV ONE (16:52)
[2019-05-06] MEDS ORDERED: ACETAMINOPHEN 325 MG/10.15 ML ORAL LIQD UNIT DOSE ONE (16:54)
[2019-05-06] MEDS ORDERED: ONDANSETRON 4 MG/2 ML INJ ONE (16:54)
[2019-05-06 16:56] LABS: Basophils % (Auto) 0.7 % (0.0-1.8); Eosinophils % (Auto) 0.3 % (0.0-4.3); Hematocrit 53.1 % (35.5-45.6); Hemoglobin 18.2 gm/dl (11.8-15.2); Lymphocytes # (Auto) 1.7 K/mm3 (1.2-5.4); Lymphocytes % (Auto) 28.3 % (13.4-35.0); Mean Corpuscular HGB Conc 34 % (32-34); Mean Corpuscular Volume 98 fl (84-94); Monocytes # (Auto) 0.5 K/mm3 (0.0-0.8); Monocytes % (Auto) 8.2 % (0.0-7.3); Platelet Count 265 K/mm3 (140-440); Red Blood Count 5.44 M/mm3 (3.65-5.03); Red Cell Distribution Width 14.7 % (13.2-15.2)
[2019-05-06 17:16] LABS: Alanine Aminotransferase 35 units/L (7-56); Albumin 4.6 g/dL (3.9-5); BUN/Creatinine Ratio 24; Blood Urea Nitrogen 26 mg/dL (9-20); Calcium 9.7 mg/dL (8.4-10.2); Hemolysis Index 25
[2019-05-06 17:20] LABS: Bilirubin,Direct < 0.2 mg/dL (0-0.2)
--- NOTE | 2019-05-06 18:06 | Emergency Department Report ---
<HERRERA CERDA - Last Filed: 05/06/19 19:33> ED Abdominal Pain HPI - General Chief Complaint: Abdominal Pain Stated Complaint: FLU SYM/VOMIT Time Seen by Provider: 05/06/19 16:12 Source: patient Mode of arrival: Ambulatory Limitations: No Limitations - History of Present Illness Initial Comments: Patient is a 39-year-old male presents emergency room with complaints of left upper and left lower quadrant abdominal pain that began 5 days ago. He has associated nausea, vomiting, diarrhea. States that he also has a fever. He states his temperature was 102 last night. He states that he also has an associated headache. Patient states that he has seen a small amount of pus in his diarrhea and that has a strong odor. Patient has a past medical history of HIV and states that his viral load is undetectable but does not know his CD4 count. He states that he has not been able to take his HIV medications in 5 days. he states he also has a hx of rectal cancer. he states he last received chemo and radiation a month ago. he states he has surgery scheduled for may 24 to remove polyps. Severity scale (0 -10): 7 - Related Data Home Medications Medication Instructions Recorded Confirmed Last Taken Gabapentin [Neurontin] 600 mg PO Q8H 03/05/16 03/05/16 03/04/16 20:00 Previous Rx's Medication Instructions Recorded Last Taken Type Acetaminophen/Codeine [Tylenol 1 tab PO Q6H PRN #10 tab 09/27/18 Unknown Rx /Codeine # 3 tab] Esomeprazole Magnesium [NexIUM] 40 mg PO QDAY #20 capsule. 09/27/18 Unknown Rx HYDROcodone/APAP 5-325 [[place] 1 each PO Q6HR PRN #8 tablet 10/15/18 Unknown Rx 5/325] Nitrofurantoin [place]/M-Cryst 100 mg PO Q12HR #14 capsule 10/15/18 Unknown Rx [Macrobid CAP] Ondansetron [Zofran ODT TAB] 4 mg PO Q8HR PRN #14 tab.rapdis 10/15/18 Unknown Rx Clindamycin [Clindamycin CAP] 300 mg PO TID 10 Days #30 cap 11/22/18 Unknown Rx oxyCODONE /ACETAMINOPHEN [Percocet 1 tab PO Q6HR PRN #15 tablet 11/22/18 Unknown Rx 5/325] Acetaminophen/Codeine [Tylenol 1 tab PO Q8H PRN #10 tab 05/06/19 Unknown Rx /Codeine # 3 tab] Ondansetron [Zofran Odt] 4 mg PO Q6HR PRN #20 tab.rapdis 05/06/19 Unknown Rx diphenhydrAMINE [Benadryl CAP] 25 mg PO Q8H PRN #10 capsule 05/06/19 Unknown Rx metroNIDAZOLE [Flagyl] 500 mg PO TID 10 Days #30 tab 05/06/19 Unknown Rx Allergies Allergy/AdvReac Type Severity Reaction Status Date / Time ciprofloxacin [From Cipro] Allergy Unknown Verified 05/06/19 17:06 Penicillins Allergy Rash Verified 05/06/19 17:06 erythromycin base AdvReac Vomiting Verified 05/06/19 17:06 ketorolac tromethamine AdvReac Vomiting Verified 05/06/19 17:06 [From Toradol] morphine AdvReac Itching Verified 05/06/19 17:06 sulfamethoxazole AdvReac Rash Verified 05/06/19 17:06 [From Bactrim] trimethoprim [From Bactrim] AdvReac Rash Verified 05/06/19 17:06 ED Review of Systems Comment: All other systems reviewed and negative ED Past Medical Hx - Past Medical History Hx Asthma: Yes Hx HIV: Yes Additional medical history: NEUROPATHY, herpes 1 & 2, syphilis - Surgical History Hx Cholecystectomy: Yes - Social History Smoking Status: Current Some Day Smoker Substance Use Type: None - Medications Home Medications: Home Medications Medication Instructions Recorded Confirmed Last Taken Type Gabapentin [Neurontin] 600 mg PO Q8H 03/05/16 03/05/16 03/04/16 20:00 History Acetaminophen/Codeine [Tylenol 1 tab PO Q6H PRN #10 tab 09/27/18 Unknown Rx /Codeine # 3 tab] Esomeprazole Magnesium [NexIUM] 40 mg PO QDAY #20 capsule. 09/27/18 Unknown Rx HYDROcodone/APAP 5-325 [[place] 1 each PO Q6HR PRN #8 tablet 10/15/18 Unknown Rx 5/325] Nitrofurantoin [place]/M-Cryst 100 mg PO Q12HR #14 capsule 10/15/18 Unknown Rx [Macrobid CAP] Ondansetron [Zofran ODT TAB] 4 mg PO Q8HR PRN #14 tab.rapdis 10/15/18 Unknown Rx Clindamycin [Clindamycin CAP] 300 mg PO TID 10 Days #30 cap 11/22/18 Unknown Rx oxyCODONE /ACETAMINOPHEN [Percocet 1 tab PO Q6HR PRN #15 tablet 11/22/18 Unknown Rx 5/325] Acetaminophen/Codeine [Tylenol 1 tab PO Q8H PRN #10 tab 05/06/19 Unknown Rx /Codeine # 3 tab] Ondansetron [Zofran Odt] 4 mg PO Q6HR PRN #20 tab.rapdis 05/06/19 Unknown Rx diphenhydrAMINE [Benadryl CAP] 25 mg PO Q8H PRN #10 capsule 05/06/19 Unknown Rx metroNIDAZOLE [Flagyl] 500 mg PO TID 10 Days #30 tab 05/06/19 Unknown Rx ED Physical Exam - General Limitations: No Limitations General appearance: alert, in no apparent distress - Head Head exam: Present: atraumatic, normocephalic - Eye Eye exam: Present: normal appearance - ENT ENT exam: Present: mucous membranes moist - Respiratory Respiratory exam: Present: normal lung sounds bilaterally. Absent: respiratory distress, wheezes, rales, rhonchi, stridor, chest wall tenderness, accessory muscle use, decreased breath sounds, prolonged expiratory - Cardiovascular Cardiovascular Exam: Present: regular rate, normal rhythm, normal heart sounds. Absent: systolic murmur, diastolic murmur, rubs, gallop - GI/Abdominal GI/Abdominal exam: Present: soft, tenderness (TTP of the LLQ, mild TTP to the LUQ), normal bowel sounds. Absent: distended, guarding, rebound, rigid - Neurological Exam Neurological exam: Present: alert, oriented X3 - Psychiatric Psychiatric exam: Present: normal affect, normal mood - Skin Skin exam: Present: warm, dry, intact ED Medical Decision Making - Lab Data Result diagrams: 05/06/19 Unknown 05/06/19 Unknown - Medical Decision Making s/o to Pardeep Perse PA-C at 7:30 pm pending stool studies ED Disposition Clinical Impression: Gastroenteritis, Diarrhea, infectious, adult Disposition: TO HOME OR SELFCARE Condition: Stable Instructions: Gastroenteritis (ED), Clostridium Difficile Infection (ED) Additional Instructions: Is follow-up with your clip on sunglasses inspector as scheduled on 05/10/2019 Prescriptions: diphenhydrAMINE [Benadryl CAP] 25 mg PO Q8H PRN #10 capsule PRN Reason: Itching metroNIDAZOLE [Flagyl] 500 mg PO TID 10 Days #30 tab Acetaminophen/Codeine [Tylenol /Codeine # 3 tab] 1 tab PO Q8H PRN #10 tab PRN Reason: Pain , Severe (7-10) Ondansetron [Zofran Odt] 4 mg PO Q6HR PRN #20 tab.rapdis PRN Reason: Nausea Referrals: PRIMARY CARE, [Primary Care Provider] - 3-5 Days <PARDEEP PERSE - Last Filed: 05/07/19 06:12> ED Review of Systems ROS: Stated complaint: FLU SYM/VOMIT Other details as noted in HPI ED Course Vital Signs 05/06/19 05/06/19 05/06/19 14:37 17:51 22:34 Temperature 99.7 F H 98.5 F Pulse Rate 100 H 85 Respiratory 18 18 18 Rate Blood Pressure 141/88 Blood Pressure 146/99 [Right] O2 Sat by Pulse 99 99 Oximetry ED Medical Decision Making - Lab Data Result diagrams: 05/06/19 Unknown 05/06/19 Unknown Lab Results 05/06/19 05/06/19 05/06/19 Range/Units 17:57 Unknown Unknown WBC 5.9 (4.5-11.0) K/mm3 RBC 5.44 H (3.65-5.03) M/mm3 Hgb 18.2 H (11.8-15.2) gm/dl Hct 53.1 H (35.5-45.6) % MCV 98 H (84-94) fl MCH 34 H (28-32) pg MCHC 34 (32-34) % RDW 14.7 (13.2-15.2) % Plt Count 265 (140-440) K/mm3 Lymph % (Auto) 28.3 (13.4-35.0) % [place] % (Auto) 8.2 H (0.0-7.3) % Eos % (Auto) 0.3 (0.0-4.3) % Baso % (Auto) 0.7 (0.0-1.8) % Lymph # 1.7 (1.2-5.4) K/mm3 [place] # 0.5 (0.0-0.8) K/mm3 Eos # 0.0 (0.0-0.4) K/mm3 Baso # 0.0 (0.0-0.1) K/mm3 Seg Neutrophils % 62.5 (40.0-70.0) % Seg Neutrophils # 3.7 (1.8-7.7) K/mm3 Sodium 134 L (137-145) mmol/L Potassium 4.5 (3.6-5.0) mmol/L Chloride 100.5 (98-107) mmol/L Carbon Dioxide 19 L (22-30) mmol/L Anion Gap 19 mmol/L BUN 26 H (9-20) mg/dL Creatinine 1.1 (0.8-1.5) mg/dL Estimated GFR > 60 ml/min BUN/Creatinine Ratio 24 % Glucose 92 (75-100) mg/dL Calcium 9.7 (8.4-10.2) mg/dL Total Bilirubin 0.40 (0.1-1.2) mg/dL Direct Bilirubin < 0.2 (0-0.2) mg/dL Indirect Bilirubin 0.2 mg/dL AST 20 (5-40) units/L ALT 35 (7-56) units/L Alkaline Phosphatase 90 (35-129) units/L Total Protein 8.2 (6.3-8.2) g/dL Albumin 4.6 (3.9-5) g/dL Albumin/Globulin Ratio 1.3 % Lipase 29 (13-60) units/L Urine Color Straw (Yellow) Urine Turbidity Hazy (Clear) Urine pH 5.0 (5.0-7.0) Ur Specific [place] 1.025 (1.003-1.030) Urine Protein 30 mg/dl (Negative) mg/dL Urine Glucose (UA) Negative (Negative) mg/dL Urine Ketones Negative (Negative) mg/dL Urine Blood Negative (Negative) Urine Nitrite Negative (Negative) Urine Bilirubin Negative (Negative) Urine Urobilinogen 2.0 (<2.0) mg/dL Ur Leukocyte Esterase Negative (Negative) Urine WBC (Auto) 7.0 H (0.0-6.0) /HPF Urine RBC (Auto) 3.0 (0.0-6.0) /HPF U Epithel Cells (Auto) 9.0 (0-13.0) /HPF Urine Mucus 1+ /HPF - Medical Decision Making Discussed C. difficile testing with lab-state unable to test stool sample until morning. Stool is negative for WBCs. Given patient's past medical history and symptoms, will treat empirically for C. difficile with metronidazole. he is afebrile and nontachycardic. Patient states he has a follow-up appointment with a clip on sunglasses inspector this coming Friday. He is nontoxic appearing. Discussed st rict return precautions in great detail with patient who verbalizes understanding. Critical care attestation.: If time is entered above; I have spent that time in minutes in the direct care of this critically ill patient, excluding procedure time. ED Disposition Is pt being admited?: No
[2019-05-06] MEDS ORDERED: HYDROmorphone 1 MG/1 ML INJ IV ONE (19:03)
--- NOTE | 2019-05-06 19:05 | Cat Scan Report ---
CT abdomen pelvis w con INDICATION: Abdominal Pain , left sided abd pain n/v/d. TECHNIQUE: All CT scans at this location are performed using CT dose reduction for ALARA by means of automated e xposure control. COMPARISON: 10/15/2018 FINDINGS: Lung bases are clear. Cholecystectomy. Mild intrahepatic biliary dilatation is unchanged and thought to be normal following cholecystectomy in this patient. No significant liver lesions. Spleen, pancreas, kidneys and adrenals are negative. Abdominal aorta is normal in size. No adenopathy . Pelvis Normal appendix. Urinary bladder and distal ureters are negative. Prostate is normal in size. No free fluid or inflammation. No skeletal lesions. IMPRESSION: 1. No acute abnormality and no interval change. Signer Name: Keyur Rees MD Signed: 05/06/2019 7:00 PM Workstation Name: [id number]
[2019-05-06 19:07] LABS: Bilirubin,Urine Negative (Negative); Blood,Urine Negative (Negative); Color,Urine Straw (Yellow)
[2019-05-06 19:08] LABS: Mucus,Urine 1+ /HPF
[2019-05-06] MEDS ORDERED: KETOROLAC 30 MG/1 ML INJ IV ONE (21:57)
[2019-05-06 22:36] VITALS: BP 146/99
== END 2019-05-06 22:34 | disposition home or self-care (01) ==
LOC: ED 13:08
DX: K52.9 Noninfective gastroenteritis and colitis, unspecified (principal); J45.909 Unspecified asthma, uncomplicated; F17.200 Nicotine dependence, unspecified, uncomplicated; Z90.49 Acquired absence of other specified parts of digestive tract; Z79.899 Other long term (current) drug therapy; Z88.1 Allergy status to other antibiotic agents; Z88.0 Allergy status to penicillin; Z91.041 Radiographic dye allergy status; Z88.6 Allergy status to analgesic agent; Z88.2 Allergy status to sulfonamides
CPT/HCPCS: 36415; 74177; 80048; 80076; 81001; 83690; 85007; 85025; 87045; 87177; 87493; 96361; 96374; 96375; 99284; J1170; J1200; J2270; J2405; J7030; Q9967

== ENCOUNTER 2021-01-31 12:30 | Emergency (ER) | payer MEDICAID ==
[2021-01-31 13:24] VITALS: BP 135/82
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
== END 2021-01-31 14:27 | disposition home or self-care (01) ==
LOC: ED 12:30
DX: S01.21XA Laceration without foreign body of nose, initial encounter (principal); J45.909 Unspecified asthma, uncomplicated; F17.200 Nicotine dependence, unspecified, uncomplicated; Z88.0 Allergy status to penicillin; Z88.1 Allergy status to other antibiotic agents; Z79.899 Other long term (current) drug therapy; Z90.49 Acquired absence of other specified parts of digestive tract; W26.8XXA Contact with other sharp object(s), not elsewhere classified, initial encounter; Y93.89 Activity, other specified; Y92.89 Other specified places as the place of occurrence of the external cause; Y99.8 Other external cause status
CPT/HCPCS: 99281

== ENCOUNTER 2021-02-08 12:44 | Emergency (ER) | payer MEDICAID ==
[2021-02-08 12:51] VITALS: BP 132/79
--- NOTE | 2021-02-08 13:31 | Emergency Department Report ---
ED General Adult HPI - General Chief complaint: Laceration/Recheck/Suture Stated complaint: SUTURE REMOVAL Time Seen by Provider: 02/08/21 12:56 Source: patient Mode of arrival: Ambulatory Limitations: No Limitations - History of Present Illness Initial comments: 41-year-old -[place] male patient presents for suture removal today. Sutures were placed here in the ED on 01/31/2021 in the right side of the face. He denies any pain, drainage, redness, swelling, or fever/chills/sweats. He states the wound is healing well and he is feeling well. -: Sudden Severity scale (0 -10): 0 - Related Data Home Medications Medication Instructions Recorded Confirmed Last Taken Gabapentin [Neurontin] 600 mg PO Q8H 03/05/16 03/05/16 03/04/16 20:00 Previous Rx's Medication Instructions Recorded Last Taken Type Acetaminophen/Codeine [Tylenol 1 tab PO Q6H PRN #10 tab 09/27/18 Unknown Rx /Codeine # 3 tab] Esomeprazole Magnesium [NexIUM] 40 mg PO QDAY #20 capsule. 09/27/18 Unknown Rx HYDROcodone/APAP 5-325 [[place] 1 each PO Q6HR PRN #8 tablet 10/15/18 Unknown Rx 5/325] Nitrofurantoin [place]/M-Cryst 100 mg PO Q12HR #14 capsule 10/15/18 Unknown Rx [Macrobid CAP] Ondansetron [Zofran ODT TAB] 4 mg PO Q8HR PRN #14 tab.rapdis 10/15/18 Unknown Rx Clindamycin [Clindamycin CAP] 300 mg PO TID 10 Days #30 cap 11/22/18 Unknown Rx oxyCODONE /ACETAMINOPHEN [Percocet 1 tab PO Q6HR PRN #15 tablet 11/22/18 Unknown Rx 5/325] Acetaminophen/Codeine [Tylenol 1 tab PO Q8H PRN #10 tab 05/06/19 Unknown Rx /Codeine # 3 tab] Ondansetron [Zofran Odt] 4 mg PO Q6HR PRN #20 tab.rapdis 05/06/19 Unknown Rx diphenhydrAMINE [Benadryl CAP] 25 mg PO Q8H PRN #10 capsule 05/06/19 Unknown Rx metroNIDAZOLE [Flagyl] 500 mg PO TID 10 Days #30 tab 05/06/19 Unknown Rx Allergies Allergy/AdvReac Type Severity Reaction Status Date / Time ciprofloxacin [From Cipro] Allergy Unknown Verified 01/31/21 12:35 Penicillins Allergy Rash Verified 01/31/21 12:35 erythromycin base AdvReac Vomiting Verified 01/31/21 12:35 ketorolac tromethamine AdvReac Vomiting Verified 01/31/21 12:35 [From Toradol] morphine AdvReac Itching Verified 01/31/21 12:35 sulfamethoxazole AdvReac Rash Verified 01/31/21 12:35 [From Bactrim] trimethoprim [From Bactrim] AdvReac Rash Verified 01/31/21 12:35 ED Review of Systems ROS: Stated complaint: SUTURE REMOVAL Other details as noted in HPI Constitutional: denies: chills, fever Skin: denies: change in color ED Past Medical Hx - Past Medical History Hx Asthma: Yes Hx HIV: Yes Additional medical history: NEUROPATHY, herpes 1 & 2, syphilis - Surgical History Hx Cholecystectomy: Yes - Social History Smoking Status: Current Some Day Smoker Substance Use Type: None - Medications Home Medications: Home Medications Medication Instructions Recorded Confirmed Last Taken Type Gabapentin [Neurontin] 600 mg PO Q8H 03/05/16 03/05/16 03/04/16 20:00 History Acetaminophen/Codeine [Tylenol 1 tab PO Q6H PRN #10 tab 09/27/18 Unknown Rx /Codeine # 3 tab] Esomeprazole Magnesium [NexIUM] 40 mg PO QDAY #20 capsule. 09/27/18 Unknown Rx HYDROcodone/APAP 5-325 [[place] 1 each PO Q6HR PRN #8 tablet 10/15/18 Unknown Rx 5/325] Nitrofurantoin [place]/M-Cryst 100 mg PO Q12HR #14 capsule 10/15/18 Unknown Rx [Macrobid CAP] Ondansetron [Zofran ODT TAB] 4 mg PO Q8HR PRN #14 tab.rapdis 10/15/18 Unknown Rx Clindamycin [Clindamycin CAP] 300 mg PO TID 10 Days #30 cap 11/22/18 Unknown Rx oxyCODONE /ACETAMINOPHEN [Percocet 1 tab PO Q6HR PRN #15 tablet 11/22/18 Unknown Rx 5/325] Acetaminophen/Codeine [Tylenol 1 tab PO Q8H PRN #10 tab 05/06/19 Unknown Rx /Codeine # 3 tab] Ondansetron [Zofran Odt] 4 mg PO Q6HR PRN #20 tab.rapdis 05/06/19 Unknown Rx diphenhydrAMINE [Benadryl CAP] 25 mg PO Q8H PRN #10 capsule 05/06/19 Unknown Rx metroNIDAZOLE [Flagyl] 500 mg PO TID 10 Days #30 tab 05/06/19 Unknown Rx ED Physical Exam - General Limitations: No Limitations General appearance: alert, in no apparent distress - Head Head exam: Present: normocephalic. Absent: atraumatic (Healing laceration noted in 2 right side of face with [address]; no erythema or drainage noted; no wound dehiscence noted;) - Eye Eye exam: Present: normal appearance. Absent: scleral icterus - Respiratory Respiratory exam: Absent: respiratory distress - Cardiovascular Cardiovascular Exam: Present: regular rate - Neurological Exam Neurological exam: Present: alert, oriented X3, normal gait - Psychiatric Psychiatric exam: Present: normal affect, normal mood - Skin Skin exam: Present: warm, dry, intact, normal color. Absent: rash ED Course Vital Signs 02/08/21 12:49 Temperature 98.1 F Pulse Rate 88 Respiratory 18 Rate Blood Pressure 132/79 [Right] O2 Sat by Pulse 97 Oximetry - Procedure Description Procedures done: 4 simple sutures removed from right face. Patient tolerated procedure well without any immediate complications. No wound dehiscence noted. No bleeding noted. ED Medical Decision Making - Medical Decision Making 41-year-old -[place] male patient presents for suture removal today. Sutures were placed here in the ED on 01/31/2021 in the right side of the face. He denies any pain, drainage, redness, swelling, or fever/chills/sweats. He states the wound is healing well and he is feeling well. Sutures removed. Wound is healing well. Recommend topical Neosporin twice daily. He is well-appearing and stable for discharge home. Discussed signs symptoms that should prompt immediate return to the ED with patient who verbalizes understanding. Critical care attestation.: If time is entered above; I have spent that time in minutes in the direct care of this critically ill patient, excluding procedure time. ED Disposition Clinical Impression: Encounter for removal of sutures Disposition: HOME / SELF CARE / HOMELESS Is pt being admited?: No Condition: Stable Instructions: Wound Closure Removal, Care After Referrals: [facility] [Provider Group] - as needed
== END 2021-02-08 23:02 | disposition left against medical advice (07) ==
LOC: ED 12:44
DX: S01.81XD Laceration without foreign body of other part of head, subsequent encounter (principal); X58.XXXD Exposure to other specified factors, subsequent encounter; F17.200 Nicotine dependence, unspecified, uncomplicated; Z90.49 Acquired absence of other specified parts of digestive tract; J45.909 Unspecified asthma, uncomplicated; Z88.1 Allergy status to other antibiotic agents; Z88.0 Allergy status to penicillin; Z88.6 Allergy status to analgesic agent; Z88.5 Allergy status to narcotic agent; Z88.2 Allergy status to sulfonamides